=== PATIENT | female | born 2000 ===

== ENCOUNTER 2023-12-31 07:17 | Emergency (ER) | payer BC, SELFPAY ==
--- NOTE | ~2023-12-31 | CT_ITS ---
EXAMINATION: CT ABDOMEN AND PELVIS WITH CONTRAST CLINICAL INFORMATION: 23-year-old female with left upper quadrant tenderness COMPARISON: None available. TECHNIQUE: Multidetector volumetric images were obtained from the superior aspect of the liver through the pubic symphysis following administration 85 mL of Omnipaque 350 intravenous contrast. Sagittal and coronal reformatted images were obtained on the technologist's workstation. Oral contrast: No This CT examination was performed using dose optimization techniques as appropriate, variously including the following: *Automated exposure control *Adjustment of mA and/or kV according to patient size (this includes techniques or standardized protocols for targeted exams where dose is matched to indication/reason for exam; i.e. extremities or head) *Use of iterative reconstruction technique DLP: 542 mGy-cm FINDINGS: LUNG BASES: The visualized lung bases are unremarkable. LIVER, GALLBLADDER, AND BILIARY TREE: The liver is normal in size, shape, and attenuation. No focal hepatic lesion or biliary ductal dilatation is present. The gallbladder is unremarkable with no evidence of radiopaque gallstones, gallbladder wall thickening, or obvious pericholecystic inflammatory changes. PANCREAS: Unremarkable. SPLEEN: Unremarkable. ADRENAL GLANDS: Unremarkable. KIDNEYS AND URETERS: The kidneys are normal in size, shape, and attenuation. No hydronephrosis, hydroureter, or calculi seen. No perinephric stranding. BLADDER: Unremarkable. GASTROINTESTINAL TRACT: The small and large bowel are unremarkable. The appendix is not seen. ABDOMINAL WALL: No significant hernia is appreciated. LYMPH NODES: Normal. VASCULAR: Unremarkable. PELVIC VISCERA: There is small amount of fluid in the pelvis adnexa are unremarkable. Endometrium is prominent. OSSEOUS STRUCTURES: Unremarkable. CT/CT abdomen pelvis w IV con IMPRESSION: 1. No explanation for left upper quadrant pain. 2. Prominent endometrium and small amount of free fluid in the pelvis. Correlate clinically Fleischner guidelines were followed.
[2023-12-31 07:30] VITALS: BP 106/55; PULSE 53; RESP 16; TEMP 36; O2SAT 98; BMI 31.1
[2023-12-31 08:11] LABS: MANUAL DIFF FLAG NO
[2023-12-31 08:15] LABS: Basophils Percent Auto 0.2 % (0-2); Eosinophils Absolute Auto 0.1 X10*3/uL (0.0-0.4); Eosinophils Percent Auto 0.8 % (0-4); Hematocrit 36.7 % (37.0-47.0); Hemoglobin 12.4 g/dl (12.0-16.0); Imm Gran Abs Auto 0.05 X10*3/uL (0.00-0.03); Imm Gran Pct Auto 0.4 % (0.0-0.4); Lymphocytes Absolute Auto 2.3 X10*3/uL (1.2-4.9); Lymphocytes Percent Auto 18.8 % (20-40); Mean Corpuscular HGB Conc 33.8 g/dl (31.0-35.0); Mean Corpuscular Hemoglobin 28.7 pg (27.0-33.0); Mean Platelet Volume 11.6 fL (9.4-12.3); Monocytes Absolute Auto 0.8 X10*3/uL (0.1-1.2); Monocytes Percent Auto 6.4 % (2-11); Neutrophils Absolute Auto 9.1 x10*3/uL (2.0-8.3); Neutrophils Percent Auto 73.4 % (45-73); Platelet Count 214 X10*3/uL (160-400); Red Blood Count 4.32 X10*6/uL (4.20-5.50); Red Cell Distribution Width 13.2 % (11.0-16.0); White Blood Count 12.4 X10*3/uL (4.8-10.8)
[2023-12-31 08:36] LABS: Alanine Aminotransferase 7 U/L (0-31); Albumin Level 4.2 g/dL (3.5-5.0); Alkaline Phosphatase 41 U/L (39-117); Anion Gap 11 (12-20); Aspartate Amino Transferase 10 U/L (5-31); Bilirubin Total 0.4 mg/dL (0.0-1.0); Blood Urea Nitrogen 8 mg/dL (9-16); Calcium 9.5 mg/dL (8.4-10.2); Carbon Dioxide 24 mmol/L (22-29); Chloride 109 mmol/L (96-108); Creatinine Clr Calc Pharmacy 124.9; Estimated Glomerular Filt Rate > 60; Glucose Random 102 mg/dL (60-115); HCG Quantitative < 2 mIU/mL; Lipase 17 U/L (8-78); Potassium 3.8 mmol/L (3.3-5.1); Sodium 140 mmol/L (135-145); Total Protein 6.9 g/dL (6.5-8.0)
--- NOTE | 2023-12-31 09:34 | ED.GENADULT ---
HPI - General Adult General Chief complaint: Abdominal Pain Stated complaint: Vomiting/Abd pain Time Seen by Provider: 12/31/23 09:32 Source: patient Mode of arrival: ambulatory Limitations: no limitations History of Present Illness ED Provider: Allen Ariza NP HPI narrative: Patient is a 23-year-old female presenting to the emergency department with complaint of abdominal pain, nausea, vomiting for the past several weeks. She reports that symptoms began after having an episode of syncope on 12/18. She states that at that time she was shopping in the store with her mother when she began to feel lightheaded, she told her mother she was going to sit in the car, then had syncopal episode. She states that she could feel herself beginning to pass out and that she was caught by her mother, did not hit the floor, no head strike. Since that time she has been having upper abdominal pain, worse on the left. States that when she wakes in the morning she has nausea and is typically vomiting bile, occasionally food as well. States that nausea persists throughout the day but the vomiting is worst in the morning. She denies fevers. Denies any abnormal vaginal bleeding or other abnormal vaginal discharge. Denies urinary frequency, urgency, dysuria, hematuria or other urinary symptoms. Denies hematochezia or melena. She denies chest pain, palpitations or dyspnea. You went to urgent care this week and was started on omeprazole and Zofran for her symptoms. States she is taken 2 doses of omeprazole with little change. Use Zofran the 1st day with good relief, use Zofran yesterday with little relief. complaint: Abdominal pain, vomiting, lightheaded Onset (ago): week(s) Location: abdomen Radiation: non-radiation Severity: moderate Quality: burning Pain Consistency: colicky Associated symptoms: other (Lightheadedness) Treatments prior to arrival: other Related Data Allergies Allergy/AdvReac Type Severity Reaction Status Date / Time No Known Allergies Allergy Verified 12/31/23 07:36 Review of Systems Review of Systems: As per HPI. Yes all other systems are reviewed and are negative Constitutional: Constitutional: Reports as per HPI PMFSH Social History Social History Smoked in Last 30 Days: No Use of substances other than those prescribed or required for medical reasons: No Advance Directives: No Advance Directives Information Provided: No Do you have a plan to hurt others: No Plan Patient : No Physical Exam ED Vital Signs: Vital Signs - 24 hr 12/31/23 07:30 12/31/23 14:26 12/31/23 14:27 Temperature 96.8 F Pulse Rate 53 51 73 Respiratory Rate 16 16 16 Blood Pressure 106/55 L 115/67 125/77 Pulse Oximetry 98 98 98 Oxygen Delivery Method Room Air Room Air Room Air 12/31/23 14:28 Temperature Pulse Rate 57 Respiratory Rate 16 Blood Pressure 134/73 Pulse Oximetry 98 Oxygen Delivery Method Room Air BMI result Body Mass Index 31.1 Vital signs have been reviewed and appear to be correct. Blood pressure slightly low. Heart rate bradycardic. Respiratory rate normal. Temperature normal. Oxygen saturation normal. Const General: cooperative, healthy appearing and no acute distress Orientation/consciousness: oriented to person, oriented to place, oriented to time and patient oriented x3 Limitations: no limitations HENMT Head: Yes normocephalic and Yes atraumatic Ears: external ears normal General nose exam: Normal external nose present Face and sinus: Yes face symmetric Mouth: oropharynx normal and moist mucous membranes Throat: Yes uvula midline Eyes Pupils: Equal, round and reactive pupils present Neck Neck: Yes normal visual inspection and Yes supple Resp Effort & Inspection: normal respiratory effort and able to speak in complete sentences Auscultation: clear to auscultation bilaterally Cardio Rate: regular rate Rhythm: regular rhythm Heart sounds: S1 normal heart sound present and S2 normal heart sound present GI Inspection: Yes normal to inspection Palpation (GI): Soft to palpation, Tenderness to palpation present (GI) in the epigastrum and in the LUQ, no guarding and No Rebound tenderness present Auscultation: normoactive bowel sounds General: Yes no CVA tenderness Back/Spine/Pelvis Back: no CVA tenderness Skin General skin exam: elasticity normal and turgor normal Neuro General: oriented to person, oriented to place, oriented to time, patient oriented x3, moves all extremities, no focal motor deficits and CN's II-XI intact bilaterally Cranial nerves: Yes Equal, round and reactive pupils present Cognition (Neuro): normal cognition Extrem General: Yes full ROM, Yes no pedal edema and Yes no calf tenderness Psych Mental Status: mental status grossly normal Affect: normal affect Thought process: Normal thought process present Medications Administered Discontinued Medications Generic Name Dose Route Start Last Admin Trade Name Freq PRN Reason Stop Dose Admin Al Hydroxide/Mg Hydroxide 15 ml 12/31/23 09:51 12/31/23 10:43 Magnesium Hydrox/Alum Hydrox 30 Ml Oral.Susp PO 12/31/23 09:52 15 ml ONCE ONE Administration Sodium Chloride 1,000 mls @ 999 mls/hr 12/31/23 10:00 12/31/23 13:31 Ns IV 12/31/23 11:00 Infused .Q1H1M KEEGAN Infusion Iohexol 85 ml 12/31/23 10:08 12/31/23 10:09 Iohexol 350 Mg/Ml 75 Ml Infus..Btl IV 12/31/23 10:09 85 ml ONCE ONE Administration Lidocaine HCl 5 ml 12/31/23 09:51 12/31/23 10:43 Lidocaine Hcl Viscous 2 % 15 Ml Solution MUCOUS MEM 12/31/23 09:52 5 ml ONCE ONE Administration Ondansetron HCl 4 mg 12/31/23 09:51 12/31/23 10:43 Ondansetron Hcl 4 Mg/2 Ml Vial IVPUSH 12/31/23 09:52 4 mg ONCE ONE Administration Medical Decision Making Medical Decision Making MDM Narrative: Patient is a 23-year-old female presenting to the emergency department with complaint of abdominal pain, nausea, vomiting for the past several weeks. She reports that symptoms began after having an episode of syncope on 12/18. On exam patient is awake, A+Ox3, VS WNL, afebrile, normal neurological exam without focal deficits, physical exam findings as above. Given reported symptoms and physical exam findings, initial differential includes gastritis, GERD, PUD, dehydration, electrolyte abnormality, cardiac dysrhythmia. Labs notable for slight leukocytosis, no evidence of TYESHA, no elevation of transaminases, negative hCG. EKG shows sinus bradycardia. CT notable for no acute intra-abdominal findings, prominent endometrium noted and small amount of free fluid in pelvis noted, feel unrelated to patient's symptoms. My interpretation is in agreement with the radiologist's interpretation. Urinalysis is without evidence of infection. No orthostatic intolerance noted. Given reported symptoms on physical exam findings, feel symptoms are likely due to either GERD or PUD, will refer patient to gastroenterology for further evaluation. Discussed with patient that she may need to continue on omeprazole before noticing results. Return precautions discussed. Patient verbalized understanding of and agreement with plan. Differential Diagnosis Differential Diagnoses: The differential diagnosis associated with the presentation includes As per MDM. Admission/Observation Consideration of admission/observation: Escalation of care including admission/observation considered Patient would have been admitted to the hospital had their work up had any findings where hospital admission was appropriate and their clinical presentation warranted hospital admission. Lab Data [facility] Lab Attestation statement: I reviewed the patient's lab results. As per MDM. 12/31/23 08:08 12/31/23 08:08 Labs: Lab Results 12/31/23 12/31/23 Range/Units 08:08 10:56 WBC 12.4 H (4.8-10.8) X10*3/uL RBC 4.32 (4.20-5.50) X10*6/uL Hgb 12.4 (12.0-16.0) g/dl Hct 36.7 L (37.0-47.0) % MCV 85.0 (80.0-98.0) fL MCH 28.7 (27.0-33.0) pg MCHC 33.8 (31.0-35.0) g/dl RDW 13.2 (11.0-16.0) % Plt Count 214 (160-400) X10*3/uL MPV 11.6 (9.4-12.3) fL Immature Gran % (Auto) 0.4 (0.0-0.4) % Neut % (Auto) 73.4 H (45-73) % Lymph % (Auto) 18.8 L (20-40) % [place] % (Auto) 6.4 (2-11) % Eos % (Auto) 0.8 (0-4) % Baso % (Auto) 0.2 (0-2) % Lymph # (Auto) 2.3 (1.2-4.9) X10*3/uL [place] # (Auto) 0.8 (0.1-1.2) X10*3/uL Eos # (Auto) 0.1 (0.0-0.4) X10*3/uL Baso # (Auto) 0.0 (0.0-0.2) X10*3/uL Abs Immat Gran (auto) 0.05 H (0.00-0.03) X10*3/uL Absolute Neuts (auto) 9.1 H (2.0-8.3) x10*3/uL Absolute Nucleated RBC 0.000 (0.0-0.012) X10*3/uL Nucleated RBC % (auto) 0.0 (0.0-0.2) /100WBC Sodium 140 (135-145) mmol/L Potassium 3.8 (3.3-5.1) mmol/L Chloride 109 H (96-108) mmol/L Carbon Dioxide 24 (22-29) mmol/L Anion Gap 11 L (12-20) BUN 8 L (9-16) mg/dL Creatinine 0.72 (0.5-1.4) mg/dL Estim Creat Clear Calc 124.9 Estimated GFR > 60 Random Glucose 102 (60-115) mg/dL Calcium 9.5 (8.4-10.2) mg/dL Total Bilirubin 0.4 (0.0-1.0) mg/dL AST 10 (5-31) U/L ALT 7 (0-31) U/L Alkaline Phosphatase 41 (39-117) U/L Total Protein 6.9 (6.5-8.0) g/dL Albumin 4.2 (3.5-5.0) g/dL Lipase 17 (8-78) U/L Beta HCG, Quant < 2 mIU/mL Urine Color Yellow Urine Appearance Cloudy Urine pH 5.5 (5.0-9.0) Ur Specific [place] >= 1.030 H (1.005-1.025) Urine Protein Negative (Neg-Trace) mg/dL Urine Glucose (UA) Negative (Negative) mg/dL Urine Ketones 40 (Negative) mg/dL Urine Blood Negative (Negative) Urine Nitrite Negative (Negative) Ur Leukocyte Esterase Negative (Negative) Independent Interpretation I performed an independent interpretation of an: EKG (sinus bradycardia, rate 48bpm, normal OK interval and QTc) and CT Scan Interpretation: CT notable for no acute intra-abdominal findings, prominent endometrium noted and small amount of free fluid in pelvis noted, feel unrelated to patient's symptoms. Radiology Impression Discussion of test interpretation with radiology: I have reviewed the radiologist's reading. Radiologist Impression: CT/CT abdomen pelvis w IV con IMPRESSION: 1. No explanation for left upper quadrant pain. 2. Prominent endometrium and small amount of free fluid in the pelvis. Correlate clinically External Record Review External record reviewed: Inpatient record, Office record and Outpatient record Discharge Plan Discharge Clinical Impression: Abdominal pain Patient Disposition: Home, Self-Care Instructions: Abdominal Pain (ED), Gastroesophageal Reflux Disease (DC) Additional Instructions: You have been evaluated in the emergency department today for abdominal pain. Your evaluation did not show evidence of medical conditions requiring emergent intervention at this time. We recommend that you continue taking the omeprazole that was prescribed to at urgent care. You can also try over the counter Maalox for your symptoms. You are being referred to the firewood cutter for further evaluation of your symptoms. You should call their office to schedule an appointment, they will not call you. Please schedule an appointment with your primary care physician. Return to the emergency department if you experience worsening or uncontrolled pain, fevers 100.4? F or greater, recurrent vomiting, inability to tolerate food or fluids by mouth, bloody stools or vomit, black or tarry stools, or any other concerning symptoms. [place] [facility] [place] [facility] [place] [facility] [place] Group] Print Language: Sinhala
--- NOTE | 2023-12-31 10:01 | ECG_ITS ---
Test Reason : SYNCOPE/LIGHTHEADED Blood Pressure : / mmHG Vent. Rate : 048 BPM Atrial Rate : 048 BPM P-R Int : 148 ms QRS Dur : 082 ms QT Int : 430 ms P-R-T Axes : 036 068 037 degrees QTc Int : 384 ms Artifact in tracing Sinus bradycardia Borderline ECG No previous ECGs available Referred By: Eugenia Ariza Electronically Signed By:CHRISTOPHE STALLWORTH
[2023-12-31] MEDS: iohexoL 350 MG/ML 75 ML INFUS..BTL 85 ML IV (10:09)
[2023-12-31] MEDS: Lidocaine HCl Viscous 2 % 15 ML SOLUTION 5 ML MUCOUS MEM (10:43)
[2023-12-31] MEDS: 0.9 % Sodium Chloride 1,000 ML 999 ML IV (10:43)
[2023-12-31] MEDS: ondansetron HCL 4 MG/2 ML VIAL IVPUSH (10:43)
[2023-12-31] MEDS: Magnesium Hydrox/Alum Hydrox 30 ML ORAL.SUSP 15 ML PO (10:43)
[2023-12-31 12:10] LABS: Appearance Urine Cloudy; Color Urine Yellow; Glucose Urine UA Negative (Negative); Leukocyte Esterase Urine Negative (Negative); Nitrite Urine Negative (Negative); PH 5.5 (5.0-9.0); Specific Gravity - Urine >= 1.030 (1.005-1.025); Urine Blood Negative (Negative); Urine Ketones 40 mg/dL (Negative); Urine Protein Negative (Neg-Trace)
[2023-12-31 14:26] VITALS: BP 115/67; PULSE 51; RESP 16; O2SAT 98
[2023-12-31 14:27] VITALS: BP 125/77; PULSE 73; RESP 16; O2SAT 98
[2023-12-31 14:28] VITALS: BP 134/73; PULSE 57; RESP 16; O2SAT 98
[2023-12-31 15:19] VITALS: BP 134/73; PULSE 57; RESP 16; TEMP 36; O2SAT 98
== END 2023-12-31 15:20 | disposition home or self-care (01) ==
PROVIDERS: Registered Nurse Emergency; Emergency Provider Emergency Medicine; PCP Physician Assistant
DX: R10.10 Upper abdominal pain, unspecified (principal); R11.2 Nausea with vomiting, unspecified
CPT/HCPCS: 36415; 74177; 80053; 81003; 83690; 84702; 85025; 93005; 96361; 96374; 99284; 99285; J2405; Q9967

== ENCOUNTER → 2023-12-31 10:01 | Outpatient (BNV) | payer BC, SELFPAY | PROVIDERS: Emergency Provider Emergency Medicine; PCP Physician Assistant; Visit Provider Internal Medicine | DX: R55 Syncope and collapse (principal); R00.1 Bradycardia, unspecified; R94.31 Abnormal electrocardiogram [ECG] [EKG] | CPT/HCPCS: 93010 ==